=== PATIENT | male | born 1945 | race Caucasian/White ===

== ENCOUNTER 2017-10-30 12:40 | Emergency (ER) | payer MEDICARE, OTHER ==
[~2017-10-30 12:40] MED LIST: ASPI81TA94 PO; AZIT-17 PO; CIP500 PO; CYCL-332 PO; DOC100 PO; DOCU-416 PO; ERYT1OIN3 OP; FLUT9.9S; HYDR-317 PO; HYDR-385 PO; IBU200 PO; IBUP600T22 PO; LOR5/325 PO; MULT-1 PO; OXYB10TA21 PO; OXYC-854 PO; PER PO; PHEN200T32 PO; PHENA200 PO; POTA-22 PO; POTC540 PO; TADA5TAB7 PO; TAM4 PO; TAMS0.4C25 PO; TAMS0.4C70 PO; TOLT4CAP13 PO
--- NOTE | 2017-10-30 12:50 | ER Report ---
History and Physical Time Seen By MD: 12:49 HPI/ROS CHIEF COMPLAINT: Swelling of left lower extremity HISTORY OF PRESENT ILLNESS: 72-year-old male patient presents to emergency room with complaint of swelling in the left lower extremity. Patient states that he is 6 weeks status post left total knee replacement. Patient states he is not having problems with back, although he has had some problems with swelling. 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 States that when he returned that he was having significant amounts of discomfort to the back of the leg as well as swelling. His states that it appears that the he has improved since she's gotten back from running the snowplow. He states that he's not had any numbness or tingling to the leg. He did go to physical therapy at [facility] and they referred him to the emergency room for further evaluation. They're concerned about possible blood clot. Patient denies any shortness of breath, any chest pain. REVIEW OF SYSTEMS: Respiratory: No cough, no dyspnea. Cardiovascular: No chest pain, no palpitations. Gastrointestinal: No vomiting, no abdominal pain. Musculoskeletal: No back pain. Allergies: Coded Allergies: meloxicam (Verified Allergy, Unknown, 06/30/17) Home Meds Reported Medications Tamsulosin Hcl (TAMSULOSIN HCL) 0.4 Mg Cap.er.24h, 0.4 MG PO, CAP 10/30/17 Potassium Citrate (UROCIT-K) 15 Meq Tablet.er, 15 MEQ PO 10/30/17 Tiopronin (THIOLA) 100 Mg Tablet, 100 MG PO 10/30/17 Ibuprofen (IBUPROFEN) 200 Mg Capsule, 1 CAP PO Q6H, CAPSULE 10/30/17 Aspirin (ASPIRIN) 81 Mg Tab.chew, 81 MG PO QDAY, TAB.CHEW 06/30/17 Past Medical/Surgical History Patient has a past medical history of kidney stones, arthritis, fractures, back pain, alcohol abuse. Patient has surgical history of tonsillectomy, bilateral knee replacements, lithotripsy. Patient has a family medical history of CAD, stroke, diabetes Hx Smoking: Yes (SMOKED YEARS AGO IN THE FOR 5 YEARS) Smoking Status: Never Smoker, Former Smoker Hx Substance Use Disorder: No Hx Alcohol Use: Yes Constitutional Vital Sign - Last 24 Hours 10/30/17 10/30/17 10/30/1710/30/18 12:40 12:45 12:46 12:55 Temp 97.5 Pulse ??? 71 73 Resp 18 B/P (MAP) 131/82 131/82 (98) Pulse Ox 90 88 O2 Delivery Room Air 10/30/17 10/30/17 10/30/17 10/30/17 13:00 13:10 13:25 13:30 Pulse 70 71 B/P (MAP) 141/85 (103) 134/68 (90) Pulse Ox 90 89 10/30/17 10/30/17 10/30/17 10/30/17 13:40 13:55 14:00 14:10 Pulse 74 80 94 B/P (MAP) ???/??? (1665) Pulse Ox 88 89 10/30/17 10/30/17 14:25 14:30 Pulse 87 B/P (MAP) 143/77 (99) Pulse Ox 94 Physical Exam General Appearance: The patient is alert, has no immediate need for airway protection and no current signs of toxicity. Respiratory: Chest is non tender, lungs are clear to auscultation. Cardiac: regular rate and rhythm Gastrointestinal: Abdomen is soft and non tender, no masses, bowel sounds normal. Musculoskeletal: Neck: Neck is supple and non tender. Extremities have full range of motion and are non tender. Patient does have 2 + edema to the left lower extremity, pulses are equal. Skin: No rashes or lesions. DIFFERENTIAL DIAGNOSIS: After history and physical exam differential diagnosis was considered for DVT, swelling, dependent edema. Medical Decision Making Data Points Result Diagram: 10/30/17 1305 10/30/17 1305 Laboratory Hematology Test 10/30/17 13:05 Red Blood Count 4.36 M/uL (4.00-5.60) Mean Corpuscular Volume 82.6 fL (80.0-96.0) Mean Corpuscular Hemoglobin 28.3 pg (26.0-33.0) Mean Corpuscular Hemoglobin Concent 34.3 g/dL (32.0-36.0) Red Cell Distribution Width 15.9 % (11.5-14.5) Mean Platelet Volume 8.2 fL (7.2-11.1) Neutrophils (%) (Auto) 70.3 % (39.4-72.5) Lymphocytes (%) (Auto) 10.6 % (17.6-49.6) Monocytes (%) (Auto) 12.2 % (4.1-12.4) Eosinophils (%) (Auto) 5.8 % (0.4-6.7) Basophils (%) (Auto) 1.1 % (0.3-1.4) Nucleated RBC Relative Count (auto) 0.1 /100WBC Neutrophils # (Auto) 4.8 K/uL (2.0-7.4) Lymphocytes # (Auto) 0.7 K/uL (1.3-3.6) Monocytes # (Auto) 0.8 K/uL (0.3-1.0) Eosinophils # (Auto) 0.4 K/uL (0.0-0.5) Basophils # (Auto) 0.1 K/uL (0.0-0.1) Nucleated RBC Absolute Count (auto) 0.01 K/uL Prothrombin Time 13.4 seconds (12.0-14.4) Prothromb Time International Ratio 1.02 Activated Partial Thromboplast Time 35 seconds (23-35) Sodium Level 139 mmol/L (137-145) Potassium Level 4.2 mmol/L (3.5-5.0) Chloride Level 103 mmol/L (98-107) Carbon Dioxide Level 25 mmol/L (22-30) Blood Urea Nitrogen 26 mg/dl (9-21) Creatinine 0.90 mg/dl (0.66-1.25) Glomerular Filtration Rate Calc > 60.0 Random Glucose 101 mg/dl (75-110) Calcium Level 8.8 mg/dl (8.4-10.2) Total Bilirubin 0.5 mg/dl (0.2-1.3) Aspartate Amino Transf (AST/SGOT) 27 U/L (0-35) Alanine Aminotransferase (ALT/SGPT) 44 U/L (0-56) Alkaline Phosphatase 80 U/L (0-126) Total Protein 6.6 gm/dl (6.3-8.2) Albumin 3.6 g/dl (3.5-5.0) Chemistry Test 10/30/17 13:05 White Blood Count 6.8 k/uL (4.5-11.0) Red Blood Count 4.36 M/uL (4.00-5.60) Hemoglobin 12.3 g/dL (14.0-18.0) Hematocrit 36.0 % (42.0-52.0) Mean Corpuscular Volume 82.6 fL (80.0-96.0) Mean Corpuscular Hemoglobin 28.3 pg (26.0-33.0) Mean Corpuscular Hemoglobin Concent 34.3 g/dL (32.0-36.0) Red Cell Distribution Width 15.9 % (11.5-14.5) Platelet Count 167 K/uL (150-450) Mean Platelet Volume 8.2 fL (7.2-11.1) Neutrophils (%) (Auto) 70.3 % (39.4-72.5) Lymphocytes (%) (Auto) 10.6 % (17.6-49.6) Monocytes (%) (Auto) 12.2 % (4.1-12.4) Eosinophils (%) (Auto) 5.8 % (0.4-6.7) Basophils (%) (Auto) 1.1 % (0.3-1.4) Nucleated RBC Relative Count (auto) 0.1 /100WBC Neutrophils # (Auto) 4.8 K/uL (2.0-7.4) Lymphocytes # (Auto) 0.7 K/uL (1.3-3.6) Monocytes # (Auto) 0.8 K/uL (0.3-1.0) Eosinophils # (Auto) 0.4 K/uL (0.0-0.5) Basophils # (Auto) 0.1 K/uL (0.0-0.1) Nucleated RBC Absolute Count (auto) 0.01 K/uL Prothrombin Time 13.4 seconds (12.0-14.4) Prothromb Time International Ratio 1.02 Activated Partial Thromboplast Time 35 seconds (23-35) Glomerular Filtration Rate Calc > 60.0 Calcium Level 8.8 mg/dl (8.4-10.2) Total Bilirubin 0.5 mg/dl (0.2-1.3) Aspartate Amino Transf (AST/SGOT) 27 U/L (0-35) Alanine Aminotransferase (ALT/SGPT) 44 U/L (0-56) Alkaline Phosphatase 80 U/L (0-126) Total Protein 6.6 gm/dl (6.3-8.2) Albumin 3.6 g/dl (3.5-5.0) Coagulation Test 10/30/17 13:05 Prothrombin Time 13.4 seconds Prothromb Time International Ratio 1.02 Activated Partial Thromboplast Time 35 seconds EKG/Imaging Imaging Venous Doppler ultrasound left lower extremity Indication: Left leg swelling.. Comparison: None Available Findings: Duplex Doppler and color flow imaging was performed. The common femoral, femoral, and popliteal veins are all patent and compressible with normal Doppler wave forms. There are normal responses to augmentation. The posterior tibial and peroneal veins are patent in the calf. The proximal greater saphenous vein is also normal. Subcutaneous tissues are unremarkable. IMPRESSION: 1. No evidence of deep venous thrombosis of the left lower extremity. Report Dictated By: Hair Lynn at 10/30/2017 2:24 PM Report E-Signed By: Hair Lynn at 10/30/2017 2:25 PM ED Course/Re-evaluation ED Course Patient was admitted to exam room, history and physical were obtained. Differential diagnoses were considered. On examination patient did have 2+ edema. An ultrasound of the lower extremity was done, a CBC, CMP and PT and PTT were done. Lab results were unremarkable, the imaging was also unremarkable. I discussed the findings with the patient and his . 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 The did mention that his leg had improved as he is had it elevated being in the bed and being at physical therapy today. We discussed wearing a compression stocking when driving. He is to follow-up with his primary care provider with any concerns. The patient may return to physical therapy for his next scheduled appointment. I discussed this with the patient and his and they verbalized understanding and agreement with plan. Decision to Disposition Date: Oct 30, 2017 Decision to Disposition Time: 14:34 Depart Departure Latest Vital Signs Vital Signs Date Time Temp Pulse Resp B/P (MAP) Pulse Ox O2 Delivery O2 Flow Rate FiO2 10/30/17 14:30 143/77 (99) 10/30/17 14:25 87 94 10/30/17 12:45 97.5 18 Room Air Impression: Primary Impression: Dependent edema Condition: Improved Disposition: HOME OR SELF-CARE Referrals: MARI STANLEY MD (PCP) Patient Instructions: Leg Edema (ED) Additional Instructions: Elevate leg when you are able. Take your medications as prescribed. Limit activity by pain. I would encourage you to wear compression stockings when you are driving. Follow up with your primary care provider in the next week. Return to the ER if condition worsens. SATYA MARROQUIN Oct 30, 2017 12:50
[2017-10-30] MEDS ORDERED: IBUP200C71 PO (12:52)
[2017-10-30] MEDS ORDERED: POTA15TA PO (12:57)
[2017-10-30] MEDS ORDERED: [UNRECOGNIZED DRUG - CODE] PO (12:57)
[2017-10-30] MEDS ORDERED: TAMS0.4C70 PO (12:58)
[2017-10-30 13:15] LABS: PLATELET COUNT, AUTOMATED 167 K/uL (150-450)
[2017-10-30 13:42] LABS: INR 1.02
--- NOTE | 2017-10-30 14:29 | RADIOLOGY IMAGING REPORT ---
[place] [facility] [place] NAME: Allan Sorenson : 1945 MR: [id number] V: [id number] EXAM DATE: ORDERING PHYSICIAN: SATYA MARROQUIN TECHNOLOGIST: Location: [facility] [place] Patient: Allan Sorenson : 1945 Visit/Account:[id number] Date of Sevice: 10/30/2017 Venous Doppler ultrasound left lower extremity Indication: Left leg swelling.. Comparison: None Available Findings: Duplex Doppler and color flow imaging was performed. The common femoral, femoral, and popl iteal veins are all patent and compressible with normal Doppler wave forms. There are normal respons es to augmentation. The posterior tibial and peroneal veins are patent in the calf. The proximal greater saphenous vein is also normal. Subcutaneous tissues are unremarkable. IMPRESSION: 1. No evidence of deep venous thrombosis of the left lower extremity. Report Dictated By: Hair Lynn at 10/30/2017 2:24 PM Report E-Signed By: Hair Lynn at 10/30/2017 2:25 PM WSN:[id number]
[2017-10-30 14:30] VITALS: BP 143/77
== END 2017-10-30 14:48 | disposition home or self-care (01) ==
LOC: ER 12:50
DX: R60.0 Localized edema (principal)
CPT/HCPCS: 36415; 82040; 82247; 82310; 82374; 82435; 82565; 82947; 84075; 84132; 84155; 84295; 84450; 84460; 84520; 85025; 85610; 85730; 99283

== ENCOUNTER → 2017-11-23 | Outpatient (REF) | payer MEDICARE, OTHER ==
[~2017-11-23] MED LIST changes: +IBUP200C71 PO; +POTA15TA PO; +[UNRECOGNIZED DRUG - CODE] PO
== END ==
LOC: ZZSENDIN 10:54
PROVIDERS: ATTEND Urology
DX: R80.9 Proteinuria, unspecified (principal); N20.0 Calculus of kidney
CPT/HCPCS: 82570; 84156

== ENCOUNTER → 2017-12-19 | Outpatient (CLI) | payer MEDICARE, OTHER ==
--- NOTE | 2017-12-19 09:50 | RADIOLOGY IMAGING REPORT ---
FAC[place]: [facility] [place] NAME: Allan Sorenson : 1945 MR: [id number] V: [id number] EXAM DATE: ORDERING PHYSICIAN: SALOME CARPIO TECHNOLOGIST: Location: [facility] Patient: Allan Sorenson : 1945 Visit/Account:[id number] Date of Sevice: 12/19/2017 ABDOMEN PELVIS ESWL CYSTO W/O HISTORY: Proteinuria, cystine stones TECHNIQUE: Axial images acquired through the abdomen/pelvis. Coronal and sagittal reformatting also performed. No IV contrast administered. Dose Lowering Technique One of the following dose optimization techniques was utilized in the performance of this exam: Autom ated exposure control; adjustment of the mA and/or kV according to the patient's size; or use of an i terative reconstruction technique. Specific details can be referenced in the facility's radiology C T exam operational policy. COMPARISON: July 23, 2017 FINDINGS: Visualized lung bases: There is minimal scarring in the lung bases Hepatobiliary: There is mild hepatomegaly unchanged. There are multiple stones seen within the gall bladder although no evidence of biliary ductal dilatation Spleen: Negative. Adrenals: Negative. Pancreas: Negative. Kidneys ureters and bladder: No right renal calculi are identified. There is no evidence of hydronep hrosis or hydroureter there are two calcifications in the lower pole calyces of the left kidney each measuring 6 mm and several punctate 1 mm calcifications in the lower pole of the left kidney as well. These calcifications have increased in size when compared to the prior study Genitalia: Negative. GI: There is a small hiatal hernia. Appendix is visualized and does not appear inflamed. There is mild diverticulosis left-sided colon although no CT evidence of acute diverticulitis Vessels/spaces/nodes: Negative. Bones/soft tissues: There are mild spondylotic changes lumbar spine. Incidentally noted is unilater al sacralization of L5 on the right Additional findings: None pertinent. IMPRESSION: The size of the lower pole left renal calculi have increased with two 6 mm calculi now identified. T he previous calculi measure less than 5 mm. There are several punctate 1 mm calcination occasions al so lower pole the left kidney No calcified identified in the right renal collecting system Cholelithiasis although no evidence for biliary ductal dilatation Small hiatal hernia Mild diverticulosis left-sided colon although no CT evidence of acute diverticulitis Additional chronic findings as described Report Dictated By: Patricia York MD at 12/19/2017 9:36 AM Report E-Signed By: Patricia York MD at 12/19/2017 9:47 AM WSN:[email or web address]
== END ==
LOC: CT 03:47
PROVIDERS: ATTEND Urology
DX: R16.0 Hepatomegaly, not elsewhere classified (principal); K80.20 Calculus of gallbladder without cholecystitis without obstruction; N20.0 Calculus of kidney; K44.9 Diaphragmatic hernia without obstruction or gangrene; K57.30 Diverticulosis of large intestine without perforation or abscess without bleeding; M47.896 Other spondylosis, lumbar region
CPT/HCPCS: 74176

== ENCOUNTER → 2017-12-23 | Outpatient (CLI) | payer MEDICARE, OTHER ==
[2017-12-23 07:15] LABS: PLATELET COUNT, AUTOMATED 117 K/uL (150-450)
== END ==
LOC: LAB 07:00
PROVIDERS: ATTEND Urology
DX: N20.0 Calculus of kidney (principal); R80.9 Proteinuria, unspecified
CPT/HCPCS: 82040; 82247; 82310; 82374; 82435; 82565; 82947; 84075; 84132; 84155; 84295; 84450; 84460; 84520; 85025

== ENCOUNTER → 2018-01-14 | Outpatient (CLI) | payer MEDICARE, OTHER ==
[2018-01-14 08:16] LABS: PLATELET COUNT, AUTOMATED 114 K/uL (150-450)
== END ==
LOC: LAB 07:55
PROVIDERS: ATTEND Urology
DX: N20.0 Calculus of kidney (principal); R80.9 Proteinuria, unspecified
CPT/HCPCS: 36415; 82040; 82247; 82310; 82374; 82435; 82565; 82947; 84075; 84132; 84155; 84295; 84450; 84460; 84520; 85025

== ENCOUNTER → 2018-01-23 | Outpatient (CLI) | payer MEDICARE, OTHER | LOC: LAB 08:16 | PROVIDERS: ATTEND Internal Medicine Nephrology | DX: N20.0 Calculus of kidney (principal); N04.9 Nephrotic syndrome with unspecified morphologic changes; E72.01 Cystinuria | CPT/HCPCS: 36415; 81001; 82040; 82310; 82374; 82435; 82565; 82570; 82947; 84100; 84132; 84156; 84160; 84165; 84295; 84520; 86038; 86160 ==

== ENCOUNTER 2018-02-05 00:15 | Day surgery (SDC) | payer MEDICARE, OTHER ==
--- NOTE | 2018-02-04 17:50 | HISTORY AND PHYSICAL ---
DATE OF ADMISSION: February 05, 2018 CHIEF COMPLAINT Cystine kidney stones. HISTORY OF PRESENT ILLNESS Patient is a 72-year-old white male with diagnosed history of cystine kidney stones since 2007, who recently in followup was noted to have an increasing left lower pole stone measuring approximately 7 mm, in addition to having a 3 mm stone just medial to this. He is now being brought to the operating room for planned left extracorporeal shock wave lithotripsy. Of note, he was recently started on Thiola, but this was stopped in mid November secondary to the development of proteinuria. He has recently seen Dr. Gage of Nephrology and has been cleared for urologic intervention secondary to the fact that his proteinuria has mostly resolved after stopping his Thiola. He remains on lisinopril. PAST MEDICAL HISTORY * Cystine kidney stones. * Obstructive sleep apnea, on CPAP. * PTH. * Erectile dysfunction. * Low back pain. PAST SURGICAL HISTORY * Bilateral vasectomy. * Umbilical hernia repair. * C-spine surgery. * Bilateral total knee replacements. * Tonsillectomy. * Colonoscopy. * L-spine surgery. * Several lithotripsies since 2007, primarily on the left side. Last intervention was August 29, 2016. CURRENT MEDICATIONS * Aspirin. * Lisinopril. * Urocit-K. * Flomax. * Multivitamins. ALLERGIES MELOXICAM. SOCIAL HISTORY Patient is and lives in [place], [place]. REVIEW OF SYSTEMS Patient denies gross hematuria, nausea, vomiting, fever, chills, flank pain, change of bowel habits, or productive cough. PHYSICAL EXAMINATION GENERAL: Patient is a well-developed, well-nourished, white male in no acute distress. HEENT: Normocephalic, atraumatic. CHEST: Clear to auscultation bilaterally. CARDIOVASCULAR: Regular rate and rhythm. ABDOMINAL: Soft, nontender. No masses are palpated. GENITOURINARY: Deferred to the OR. EXTREMITIES: Without clubbing, cyanosis, or edema. NEUROLOGIC: Nonfocal. IMPRESSION A 72-year-old white male with history of cystine stones with a current recurrence of cystine stones in the left lower pole. PLAN We will perform left extracorporeal shock wave lithotripsy. [facility]
[~2018-02-05] VITALS: Ht 177.8 cm; Wt 91.6 kg
[~2018-02-05 00:15] MED LIST changes: +LISI5TAB25 PO; +POTA99TA6 PO
[2018-02-05 11:02] LABS: INR 0.96
[2018-02-05 11:05] VITALS: BP 117/69
[2018-02-05] MEDS ORDERED: ONDANSETRON 4 MG/2 ML VIAL ONE (11:18)
[2018-02-05] MEDS ORDERED: fentaNYL CITR 100 MCG/2 ML AMP ONE (11:18)
[2018-02-05] MEDS ORDERED: PROPOFOL EMUL(*) 10MG/ML 20 ML 20 ML ONE (11:18)
[2018-02-05] MEDS ORDERED: LIDOCAINE MPF 1% 5 ML VIAL ONE (11:18)
[2018-02-05] MEDS ORDERED: DEXAMETHASONE SOD 4 MG/ML VIAL ONE (11:18)
[2018-02-05] MEDS ORDERED: FAMOTIDINE 20 MG TAB PO ONE (12:30)
--- NOTE | 2018-02-05 12:32 | EKG ---
FACILITY: [facility] PATIENT NAME: MARIO ESTRELLA : [id number] MR: [id number] V: [id number] EXAM DATE: ORDERING PHYSICIAN: RIA HORTON TECHNOLOGIST: AR Jacob Reason : PRE-OP Blood Pressure : / mmHG Vent. Rate : 056 BPM Atrial Rate : 056 BPM P-R Int : 220 ms QRS Dur : 118 ms QT Int : 476 ms P-R-T Axes : 051 105 068 degrees QTc Int : 459 ms Sinus bradycardia with sinus arrhythmia with 1st degree AV block Rightward axis Nonspecific intraventricular conduction delay Borderline ECG When compared with ECG of 28-FEB-2016 14:19, No significant change was found Confirmed by MARI ISABEL ([id number]) on 02/05/2018 2:59:50 PM Referred By: SHIRIN Confirmed By:MARI ISABEL
[2018-02-05] MEDS ORDERED: KETAMINE HCL 200 MG/20 ML MDV ONE (12:36)
[2018-02-05] MEDS ORDERED: NORMOSOL R SOLN(*) 1000 ML BAG 1,000 ML IV PRN (12:50)
[2018-02-05] MEDS ORDERED: LR 500 ML BAG 500 ML IV PRN (12:50)
[2018-02-05] MEDS ORDERED: LIDOCAINE/SOD BICARB 8.4% SYR ID ONE (12:50)
[2018-02-05] MEDS ORDERED: ceFAZolin(*) 2GM/D5W 50ML 50 ML IVPB ONE (12:50)
[2018-02-05] MEDS ORDERED: MIDAZOLAM 2 MG/2 ML VIAL IVP PRN (12:50)
[2018-02-05] MEDS ORDERED: ACETAMINOPHEN(*)1000 MG/100 ML 100 ML IVPB ONE (12:58)
[2018-02-05] MEDS ORDERED: GLYCOPYRROLATE 0.2MG/ML 1 ML INJ ONE (13:12)
[2018-02-05] MEDS ORDERED: HYDR-4309 PO (13:48)
[2018-02-05] MEDS ORDERED: DOCU-416 PO (13:48)
--- NOTE | 2018-02-05 14:14 | RADIOLOGY IMAGING REPORT ---
FACILITY: [facility] PATIENT NAME: Alaln Sorenson : 1945 MR: [id number] V: [id number] EXAM DATE: ORDERING PHYSICIAN: SALOME CARPIO TECHNOLOGIST: Location: [facility] Patient: Allan Sorenson : 1945 Visit/Account:[id number] Date of Sevice: 02/05/2018 Exam: KUB SINGLE VIEW ABDOMEN Indication: kidney stones, RAD Comparison: CT 12/19/2017 Findings: No nephroureteral calculi are visualized. Stool and gas overlie both renal fossa. There is nonobstructive bowel gas pattern. IMPRESSION: 1. Left-sided nephrolithiasis described on recent CT scan is not identified on today's study Report Dictated By: Myke Wilson at 02/05/2018 2:08 PM Report E-Signed By: Myke Wilson at 02/05/2018 2:11 PM WSN:[id number]
--- NOTE | 2018-02-05 19:30 | OPERATIVE REPORT 1 ---
EVENT DATE: February 05, 2018 SURGEON: Carlos Weaver MD ANESTHESIOLOGIST: Ariel Bland MD ANESTHESIA: General anesthetic. PREOPERATIVE DIAGNOSIS Left renal calculi. POSTOPERATIVE DIAGNOSIS Left renal calculi. PROCEDURE PERFORMED Left extracorporeal shock wave lithotripsy. ESTIMATED BLOOD LOSS Minimal. INTRAVENOUS FLUIDS Crystalloid. DRAINS None. COMPLICATIONS None. CONDITION Patient taken to the recovery room awake, in stable condition. STATEMENT OF MEDICAL NECESSITY Patient is a 72-year-old white male with a history of cystine stones, who was noted to have increasing stone volume by recent CT scan. He had three stones in the left lower pole, one measuring approximately 6 x 5, one measuring 5 x 5, and a 3 x 5 stone. Options were discussed. He has elected to undergo extracorporeal shock wave lithotripsy. DESCRIPTION OF PROCEDURE PERFORMED Patient was brought to the operating room. After general anesthetic was obtained, he was placed supine on the lithotripsy table. His most lower inferior stone was placed in the lithotripsy crosshairs in two planes. Treatment was begun at a power setting of 2 and gradually increased to a power setting of 9. He received 300 shocks before a three-minute pause was performed. Treatment was then resumed with the power gradually increased to 7.5 for the lower-most stone. After approximately 500 shocks, the lithotripsy crosshairs were moved slightly cephalad to the 6 x 5 mm stone. Again, the crosshairs were placed on this stone in two planes. Treatment was resumed at a power setting of 7.5 and gradually increased to a power setting of 9 over the course of the next 1500 shocks. Following this, the most superior lower pole stone was then next targeted and placed in the lithotripsy crosshairs. He received a total of 1000 shocks to this stone. He received a total of 3000 shocks to the left lower pole, at the conclusion of which no significant stone fragments could be identified. He was awakened in the operating room and taken to the recovery area in stable condition. PLAN The plan will be to allow the patient to be discharged home today on [place] and [place]. He is to continue his Flomax medicine. Will plan to see him in Urology Clinic in approximately six weeks with a followup low-dose CT scan. He is to start the head down protocol in one to two days. [facility]
== END 2018-02-05 14:40 | disposition home or self-care (01) ==
LOC: OR 00:15
PROVIDERS: ATTEND Urology
DX: N20.0 Calculus of kidney (principal); G47.33 Obstructive sleep apnea (adult) (pediatric); N52.9 Male erectile dysfunction, unspecified; M54.5 Low back pain; I10 Essential (primary) hypertension; K21.9 Gastro-esophageal reflux disease without esophagitis; Z96.653 Presence of artificial knee joint, bilateral; Z88.8 Allergy status to other drugs, medicaments and biological substances
CPT/HCPCS: 36415; 50590; 74018; 81001; 85610; 87088; 93005; A9270; J0131; J1100; J2001; J2405; J2704; J3010; J3490; J0690

== ENCOUNTER → 2018-03-10 | Outpatient (CLI) | payer MEDICARE, OTHER ==
[~2018-03-10] MED LIST changes: +HYDR-4309 PO
== END ==
LOC: LAB 08:39
PROVIDERS: ATTEND Internal Medicine Nephrology
DX: N04.9 Nephrotic syndrome with unspecified morphologic changes (principal); E72.01 Cystinuria; N20.0 Calculus of kidney
CPT/HCPCS: 82040; 82310; 82374; 82435; 82565; 82947; 84100; 84132; 84295; 84520; 86038; 86255

== ENCOUNTER → 2018-04-29 | Outpatient (CLI) | payer MEDICARE, OTHER ==
[~2018-04-29] MED LIST changes: +IBUP-136 PO; -IBUP200C71 PO
--- NOTE | 2018-04-29 13:48 | RADIOLOGY IMAGING REPORT ---
FACILITY: [facility] PATIENT NAME: Allan Sorenson : 1945 MR: [id number] V: [id number] EXAM DATE: ORDERING PHYSICIAN: SALOME CARPIO TECHNOLOGIST: Location: [facility] Patient: Allan Sorenson : 1945 Visit/Account:[id number] Date of Sevice: 04/29/2018 ABDOMEN PELVIS ESWL CYSTO W/O HISTORY: Kidney stones TECHNIQUE: Axial images acquired through the abdomen/pelvis. Coronal and sagittal reformatting also performed. No IV contrast administered. History of kidney stones Dose Lowering Technique One of the following dose optimization techniques was utilized in the performance of this exam: Autom ated exposure control; adjustment of the mA and/or kV according to the patient's size; or use of an i terative reconstruction technique. Specific details can be referenced in the facility's radiology C T exam operational policy. COMPARISON: December 19, 2017 FINDINGS: Visualized lung bases: Negative. Hepatobiliary: Cholelithiasis although no evidence of biliary ductal dilatation. The liver is incom pletely imaged although there is suggestion of mild hepatomegaly Spleen: Spleen is incompletely imaged although the visualized portion appears grossly unremarkable Adrenals: Negative. Pancreas: Negative. Kidneys ureters and bladder: There is no evidence of hydronephrosis or hydroureter. No evidence of r ight-sided urolithiasis. There is a 6 mm calculus lower pole of the left kidney at least four tiny p unctate calculi in lower pole calyces of the left kidney as well ranging between one and 2 mm. Genitalia: Negative. GI: There is diverticulosis left-sided colon although no CT evidence of acute diverticulitis Is visualized and does not appear inflamed Vessels/spaces/nodes: Negative. Bones/soft tissues: Spondylotic changes of the lumbar spine Additional findings: None pertinent. IMPRESSION: There are nonobstructing calculi seen in the left renal collecting system. They all appear to be in the lower pole ranging in size between one and 6 mm. No evidence of hydronephrosis or hydroureter Cholelithiasis although no evidence for ductal dilatation Report Dictated By: Patricia York MD at 04/29/2018 1:39 PM Report E-Signed By: Patricia York MD at 04/29/2018 1:44 PM WSN:[email or web address]
== END ==
LOC: CT 07:15
PROVIDERS: ATTEND Urology
DX: N20.0 Calculus of kidney (principal); K80.20 Calculus of gallbladder without cholecystitis without obstruction
CPT/HCPCS: 74176

== ENCOUNTER → 2018-07-15 | Outpatient (CLI) | payer MEDICARE, OTHER ==
[~2018-07-15] MED LIST changes: -HYDR-4309 PO; +HYDR-653 PO
== END ==
LOC: LAB 07:41
PROVIDERS: ATTEND Internal Medicine Nephrology
DX: N20.0 Calculus of kidney (principal); N04.9 Nephrotic syndrome with unspecified morphologic changes; E72.01 Cystinuria
CPT/HCPCS: 36415; 81001; 82040; 82310; 82374; 82435; 82565; 82570; 82947; 84100; 84132; 84156; 84295; 84520

== ENCOUNTER → 2018-08-04 | Outpatient (CLI) | payer MEDICARE, OTHER ==
[~2018-08-04] MED LIST changes: +HYDR12.556 PO; +MULT1TAB64 PO
--- NOTE | 2018-08-04 15:03 | EKG ---
FACILITY: [facility] - [place] PATIENT NAME: MARIO ESTRELLA : [id number] MR: [id number] V: [id number] EXAM DATE: ORDERING PHYSICIAN: CHAPARRITA CASTELLANOS TECHNOLOGIST: ELSIE Test Reason : PVC Blood Pressure : / mmHG Vent. Rate : 068 BPM Atrial Rate : 068 BPM P-R Int : 222 ms QRS Dur : 124 ms QT Int : 432 ms P-R-T Axes : 062 102 069 degrees QTc Int : 459 ms Sinus rhythm with marked sinus arrhythmia with 1st degree AV block Otherwise normal ECG When compared with ECG of 05-FEB-2018 11:46, No significant change was found Confirmed by CHAPARRITA CASTELLANOS ([id number]) on 08/04/2018 4:56:05 PM Referred By: STEPHIE Confirmed By:CHAPARRITA CASTELLANOS
== END ==
LOC: RESP 14:19
PROVIDERS: ATTEND Internal Medicine
DX: Z02.9 Encounter for administrative examinations, unspecified (principal)

== ENCOUNTER → 2018-08-05 | Outpatient (CLI) | payer MEDICARE, OTHER ==
[2018-08-05 08:03] LABS: PLATELET COUNT, AUTOMATED 129 K/uL (150-450)
[2018-08-05 08:36] LABS: LDL CHOLESTEROL 52 mg/dl
== END ==
LOC: LAB 07:53
PROVIDERS: ATTEND Internal Medicine
DX: R60.9 Edema, unspecified (principal); G47.33 Obstructive sleep apnea (adult) (pediatric); I49.3 Ventricular premature depolarization; E78.5 Hyperlipidemia, unspecified
CPT/HCPCS: 36415; 82040; 82247; 82310; 82374; 82435; 82465; 82565; 82947; 83718; 84075; 84132; 84155; 84295; 84443; 84450; 84460; 84478; 84520; 85025